=== PATIENT | female | born 1995 | race Caucasian/White ===

== ENCOUNTER 2021-03-26 09:55 | Emergency (ER) | payer MEDICAID ==
[~2021-03-26] VITALS: Ht 165.1 cm; Wt 63.5 kg
[2021-03-26] MEDS ORDERED: ALBUTEROL 6.7GM HFA INHALER ORI ONE (10:15)
[2021-03-26] MEDS ORDERED: IBUPROFEN 400MG TABLET PO ONE (10:15)
[2021-03-26 10:28] VITALS: BP 119/76
[2021-03-26] MEDS ORDERED: ALBU6.7H9 INH (11:20)
[2021-03-26] MEDS ORDERED: PSEU120T56 MT (11:20)
== END 2021-03-26 11:35 | disposition home or self-care (01) ==
LOC: ER 09:55
DX: J06.9 Acute upper respiratory infection, unspecified (principal)
CPT/HCPCS: 71045; 87804; 93005; 94640; 99285

== ENCOUNTER 2021-05-12 08:29 | Emergency (ER) | payer MEDICAID ==
[~2021-05-12] VITALS: Ht 175.3 cm; Wt 103.0 kg
[~2021-05-12 08:29] MED LIST: ALBU6.7H9 INH; PSEU120T56 MT
[2021-05-12] MEDS ORDERED: ACETAMINOPHEN 325MG TABLET PO ONE (08:45)
[2021-05-12] MEDS ORDERED: SODIUM CHLORIDE 0.9% 1,000 ML IV ONE (08:45)
[2021-05-12 09:11] LABS: BASOPHILS % 0.6 % (0.0-2.0); EOSINOPHILS % 1.4 % (0.0-5.0); HEMATOCRIT. 36.2 % (36.0-48.0); HEMOGLOBIN. 12.6 g/dL (12.0-16.0); LYMPHOCYTES % 31.3 % (20.0-50.0); MEAN CORPUSCULAR VOLUME 83.6 fL (81.0-99.0); MEAN PLATELET VOLUME 8.6 fl (7.4-10.4); MONOCYTES % 7.6 % (2.0-8.0); NEUTROPHILS % 59.1 % (40.0-76.0); PLATELET 261 x1000/uL (130-400); RED BLOOD CELL COUNT 4.34 mill/uL (4.2-5.4); RED CELL DISTRIBUTION WIDTH 14.5 % (11.6-14.6)
[2021-05-12 09:13] LABS: CLARITY URINE CLEAR (CLEAR); COLOR URINE YELLOW (YELLOW); KETONES URINE NEGATIVE (NEGATIVE); LEUKOCYTE ESTERASE URINE NEGATIVE (NEGATIVE); NITRITE URINE NEGATIVE (NEGATIVE); OCCULT BLOOD URINE NEGATIVE (NEGATIVE); PROTEIN URINE NEGATIVE (NEGATIVE); SPECIFIC GRAVITY URINE 1.016 (1.005-1.030)
[2021-05-12 09:18] LABS: CHLORIDE 109 mEq/L (98-107)
[2021-05-12 09:19] LABS: HCG SCREEN POSITIVE
[2021-05-12 13:28] VITALS: BP 110/65
== END 2021-05-12 13:15 | disposition home or self-care (01) ==
LOC: ER 08:29
DX: O26.891 Other specified pregnancy related conditions, first trimester (principal); Z3A.01 Less than 8 weeks gestation of pregnancy; R07.89 Other chest pain; J45.909 Unspecified asthma, uncomplicated
CPT/HCPCS: 36415; 71045; 76801; 76817; 80053; 81003; 84484; 84702; 84703; 85025; 93005; 96360; 96361; 99285; J7030